=== PATIENT | male | born 1990 | race Caucasian/White ===

== ENCOUNTER 2019-06-06 20:32 | Emergency (ER) | payer BC, SELFPAY ==
[2019-06-06 21:23] VITALS: PULSE 93; RESP 18; TEMP 37.9; O2SAT 98
--- NOTE | 2019-06-06 21:53 | ED.FEVER ---
HPI - Fever General Chief Complaint: Fever Stated Complaint: fever, headache, lower back pain Source: patient Mode of arrival: ambulatory Limitations: no limitations History of Present Illness HPI Narrative: Andrea is a 28-year-old with a history of asthma and periodic low back pain. He presents to the ED with the abrupt onset 3 or 4 hours ago of low back pain, headache, body aches and fever with temperature recorded at home 105.6 then 103.4 then 101?. (He has not taken ibuprofen or acetaminophen or other antipyretics). He has started coughing within the last hour so; he denies a sore throat. In addition, he just started having tingling in his fingers and white blanching of his palms. He feels discomfort going down into both of his legs. He is wondering if he could have injured his back while at the same time developed these flu-like symptoms. He has had slight wheezing which improved after several puffs of his inhaler Related Data Home Medications Medication Instructions Recorded Confirmed No Home Medications 06/06/19 06/06/19 Allergies Allergy/AdvReac Type Severity Reaction Status Date / Time codeine Allergy Unknown Unknown Verified 06/06/19 21:30 Review of Systems Constitutional: Constitutional: Reports headache(s) Eyes: Comments: no eye itching or discharg ENT: Comments: no rhinorrhea Cardiovascular: Comments: no chest pain Respiratory: Respiratory: Reports as per HPI Gastrointestinal: Gastrointestinal: Denies abdominal pain, Denies nausea and Denies vomiting Musculoskeletal: Musculoskeletal: Reports no additional musculoskeletal complaints Integumentary/Breasts: Comments: no rash Neurologic: Comments: no weakness or loss of sensation in the extremity PMFSH Past Medical History Medical History (Updated 06/07/19 @ 00:00 by Harshad Gonzalez) Asthma Social History Social History (Updated 06/06/19 @ 22:01 by Robert Hein MD) Smoking status: Never smoker Other substance usage details: denies hx of IV drug use 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 Gender identity (if verbalized by the patient): Male Exam Narrative: Exam Narrative: no acute distress Const: Nutritional Appearance: well nourished Orientation/consciousness: oriented to person Limitations: no limitations HENMT: Head: normal to inspection General nose exam: No nasal discharge present Face and sinus: sinuses nontender Mouth: Yes moist mucous membranes Throat: normal posterior oropharynx Neck: Neck: no lymphadenopathy Chest: Chest palpation & inspection: normal inspection of the chest Resp: Effort & Inspection: normal respiratory effort and able to speak in complete sentences Auscultation: clear to auscultation bilaterally Cardio: Rhythm: regular rhythm Heart sounds: no murmurs GI: GI Palp: No abdominal tenderness and Yes Soft to palpation Back/Spine/Pelvis: Cervical Spine: other ( minor tenderness of the lower lumbar paraspinal muscles. ) Thoracic/Lumbar Spine: thoracic and lumbar spine normal to inspection, thoraco-lumbar ROM normal, straight leg raise negative bilaterally, No bend over test abnormal, paraspinal muscle tenderness (minor), No lumbar spinal tenderness and other ( No spinous process tenderness) Skin: General skin exam: normal color, no rashes or lesions noted and other (palms are pale in the center. Brisk fingtip capillar refill. ) Neuro: General: patient oriented x3 and gait normal Sensory Exam: normal sensation Deep tendon reflexes (DTR's): Right patellar reflex intensity grade: 2+, Left patellar reflex intensity grade: 2+, Right ankle reflex intensity grade: 2+ and Left ankle reflex intensity grade: 2+ Course Course Emergency Course: . Improvement of headache and lumbar pain with ibuprofen. Vital Signs Vital signs: Vital Signs Temperature 37.9 C H 06/06/19 21:23 Pulse Rate 93 06/06/19 21:23 Respiratory Rate 18 06/06/19 21:23 Pulse Oximetry 98
[2019-06-06] MEDS: IBUPROFEN 600 MG TABLET PO (22:01)
--- NOTE | 2019-06-06 22:26 | PC.NURSE ---
PT. 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 AWAITING LAB RESULTS. REPORT GIVEN TO MAGALYS CEE
[2019-06-06 22:32] LABS: Influenza Control Valid (Valid)
[2019-06-06 22:42] VITALS: TEMP 37.3
--- NOTE | 2019-06-06 22:43 | PC.NURSE ---
oriented to new child care sitter, resting with eyes closed, friend at bed side asleep, too.
[2019-06-06 22:55] VITALS: BP 120/55; PULSE 88; RESP 16; TEMP 37.2
== END 2019-06-06 22:56 | disposition home or self-care (01) ==
PROVIDERS: Emergency Provider Family Medicine; PCP Internal Medicine
DX: J11.1 Influenza due to unidentified influenza virus with other respiratory manifestations (principal); M79.10 Myalgia, unspecified site
CPT/HCPCS: 87804; 99282; 99283; A9270

== ENCOUNTER 2019-07-03 19:17 | Emergency (ER) | payer OTHER, BC, SELFPAY ==
[2019-07-03 19:54] VITALS: BP 112/85; PULSE 74; RESP 16; TEMP 37.2; O2SAT 99
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
[2019-07-03] MEDS: DIAZEPAM 5 MG TABLET PO (21:17)
[2019-07-03] MEDS: KETOROLAC (*BKC) 60 MG/2 ML VIAL IM (21:18)
== END 2019-07-03 21:21 | disposition home or self-care (01) ==
PROVIDERS: Emergency Provider Emergency Medicine; PCP Internal Medicine
DX: S29.012A Strain of muscle and tendon of back wall of thorax, initial encounter (principal); S39.012A Strain of muscle, fascia and tendon of lower back, initial encounter; V49.40XA Driver injured in collision with unspecified motor vehicles in traffic accident, initial encounter
CPT/HCPCS: 96372; 99283; A9270; J1885

== ENCOUNTER 2019-08-05 10:50 | Outpatient (CLI) | payer OTHER, BC, SELFPAY ==
--- NOTE | ~2019-08-05 | XR_ITS ---
EXAMINATION: XR lumbar spine 2-3V DATE: 08/05/2019 11:17 INDICATION: Low back pain TECHNIQUE: Anteroposterior and lateral views of the lumbar spine, and cone-down lateral view of the l umbosacral junction were obtained. COMPARISON: 03/14/2019 FINDINGS: There is no fracture, dislocation, or subluxation. The vertebral body heights, alignment, a nd intervertebral disc spaces are normal. The paravertebral soft tissues are unremarkable. The bowel gas pattern is normal. IMPRESSION: 1. Normal lumbar spine. Reviewed, dictated and finalized at location B. IMPRESSION: 1. Normal lumbar spine.
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
== END 2019-08-05 10:51 | disposition home or self-care (01) ==
LOC: CHSIMG 10:53
PROVIDERS: PCP Internal Medicine; Visit Provider Internal Medicine
DX: M54.9 Dorsalgia, unspecified (principal); M54.17 Radiculopathy, lumbosacral region
CPT/HCPCS: 72100; 73502

== ENCOUNTER 2019-08-06 17:02 | Outpatient (RCR) | payer OTHER, BC, SELFPAY ==
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
== END 2019-12-15 23:59 | disposition home or self-care (01) ==
LOC: CHSPT 17:02
PROVIDERS: PCP Internal Medicine; Visit Provider Internal Medicine
DX: M54.5 Low back pain (principal); M25.551 Pain in right hip
CPT/HCPCS: 97014; 97110; 97161; 97530; G0283